=== PATIENT | male | born 1950 | race Caucasian/White ===

== ENCOUNTER 2025-09-02 12:19 | Outpatient (CLI) | payer BC ==
[2025-09-02 13:13] LABS: MEAN PLATELET VOLUME 8.3 FL (7.4-10.4); RED CELL DISTRIBUTION WIDTH 13.6 % (11.5-14.5)
[2025-09-02 13:21] LABS: % IRON SATURATION 45 % (11-46); CHOL/HDL RATIO 2.7 (0.00-4.99); CREATININE 1.24 MG/DL (0.60-1.10); LDL CHOLESTEROL 82 MG/DL (50-100); TOTAL CARBON DIOXIDE 32.2 MMOL/L (24-32); eGFR 57 ML/MIN
== END 2025-09-02 23:59 | disposition home or self-care (01) ==
LOC: RAD 12:19
PROVIDERS: ATTEND Family Medicine
DX: Z13.1 Encounter for screening for diabetes mellitus (principal); E78.2 Mixed hyperlipidemia; Z12.5 Encounter for screening for malignant neoplasm of prostate; Z76.89 Persons encountering health services in other specified circumstances; L71.9 Rosacea, unspecified; G25.81 Restless legs syndrome; D64.9 Anemia, unspecified; E66.813 Obesity, class 3
CPT/HCPCS: 36415; 80053; 80061; 82728; 83036; 83540; 83550; 84153; 84154; 84402; 84403; 84443; 84466; 85025